=== PATIENT | female | born 1990 | race Hispanic/Latino ===

== ENCOUNTER 2023-01-07 07:25 | Day surgery (SDC) | payer MEDICAID ==
[2023-01-05 09:07] VITALS: BP 112/67
[2023-01-05 09:13] LABS: BASOPHILS % (AUTO) 0.6 % (0.0-5.0); EOSINOPHILS % (AUTO) 1.7 % (0.0-8.0); HEMATOCRIT 38.8 % (36-48); LYMPHOCYTES % (AUTO) 33.8 % (21.0-51.0); MEAN CORPUSCULAR HEMOGLOBIN 27.5 pg (27.0-33.0); MONOCYTES % (AUTO) 6.2 % (3.0-13.0); NEUTROPHILS % (AUTO) 57.4 % (40.0-77.0); PLATELET COUNT (AUTO) 377 K/uL (130-400); RED BLOOD CELL COUNT(AUTO) 4.51 MIL/uL (4.00-5.50); RED CELL DISTRIBUTION WIDTH 13.3 % (11.0-15.5); WHITE BLOOD COUNT (AUTO) 6.7 K/uL (4.8-10.8)
[2023-01-05 09:21] LABS: ALBUMIN 3.3 g/dL (3.5-5.0); CREATININE 0.6 mg/dL (0.5-1.5); POTASSIUM 3.9 mmol/L (3.5-5.1); TOTAL PROTEIN, SERUM 6.3 g/dL (6.0-8.3)
[2023-01-07] VITALS (18 sets, daily range): BP systolic 104–120; BP diastolic 61–82
[~2023-01-07] VITALS: Ht 160 cm; Wt 72.8 kg
[~2023-01-07 07:25] MED LIST: 0.9% NACL 500ML IV.SOLN 500 ML IV SCH; BUPIVACAINE/PF 0.5% 10ML VIAL ONE; CEFAZOLIN SODIUM 2 GM VIAL IVPB SCH; MVIT PO
[2023-01-07] MEDS ORDERED: LACTATED RINGERS 1000ML 1,000 ML IV ONE (07:38)
[2023-01-07] MEDS ORDERED: ROCURONIUM 10MG/1ML SYR 10 MG/ML ML ONE (08:36)
[2023-01-07] MEDS ORDERED: PROPOFOL 10 MG/ML 20ML VIAL IV ONE (08:36)
[2023-01-07] MEDS ORDERED: FENTANYL CITRATE PF 50 MCG/1 ML 2ML VIAL ONE ×2 (08:36→10:09)
[2023-01-07] MEDS ORDERED: MIDAZOLAM HCL 1 MG/ML 2ML VIAL ONE (08:36)
[2023-01-07] MEDS ORDERED: ONDANSETRON 4MG INJ ONE ×3 (08:36→11:45)
[2023-01-07] MEDS ORDERED: CEFAZOLIN SODIUM 2 GM VIAL IVPB ONE (09:34)
[2023-01-07] MEDS ORDERED: MEPERIDINE-PF 25 MG/ML SYG ONE ×3 (09:43→11:07)
[2023-01-07] MEDS ORDERED: KETOROLAC 30MG VIAL (30MG/ML) ONE (10:11)
[2023-01-07] MEDS ORDERED: NEOSTIGMINE 5MG/5ML SYR IV ONE (10:21)
[2023-01-07] MEDS ORDERED: GLYCOPYRROLATE 1 MG/5 ML SYRINGE ONE (10:21)
[2023-01-07] MEDS ORDERED: BUPIVACAINE/PF 0.5% 30ML VIAL INJ ONE (10:27)
[2023-01-07] MEDS ORDERED: METOCLOPRAMIDE 10 MG/2 ML VIAL ONE (11:44)
== END 2023-01-07 12:44 | disposition home or self-care (01) ==
LOC: DAH 07:25
PROVIDERS: ATTEND Surgery
DX: K80.10 Calculus of gallbladder with chronic cholecystitis without obstruction (principal); K82.8 Other specified diseases of gallbladder; Z20.822 Contact with and (suspected) exposure to COVID-19; K21.9 Gastro-esophageal reflux disease without esophagitis; Z98.890 Other specified postprocedural states; Z98.891 History of uterine scar from previous surgery; Z90.89 Acquired absence of other organs; Z82.49 Family history of ischemic heart disease and other diseases of the circulatory system; Z83.3 Family history of diabetes mellitus; Z98.84 Bariatric surgery status
CPT/HCPCS: 80053; 84703; 85025; 87426; 36415; 47562; A6260; A4663; J7030; J7120; J3010 ×2; J3490 ×2; J2710; J2250; J2405 ×3; J1885; J2175 ×3; J2765; J0690 ×2; C1769 ×3; A4649 ×2; A4215; A4223; A4222; A4221; S0020 ×2; A4600; J2704